=== PATIENT | female | born 1975 | race Caucasian/White ===

== ENCOUNTER 2020-05-18 15:28 | Emergency (ER) | payer BC, OTHER ==
[~2020-05-18] VITALS: Ht 167.6 cm; Wt 63.5 kg
[2020-05-18] MEDS ORDERED: IBUPROFEN 600 MG TABLET ONE (15:41)
[2020-05-18] MEDS ORDERED: IBUPROFEN 600 MG TABLET PO ONE (15:45)
--- NOTE | 2020-05-18 16:00 | NUR ---
Patient discharged to home in stable condition. Written and verbal after care instructions given. Patient verbalizes understanding of instructions. Stressed follow up or return to ER for worsening s/s.
== END 2020-05-18 16:00 | disposition home or self-care (01) ==
LOC: ER 15:28
DX: S60.221A Contusion of right hand, initial encounter (principal); Y04.2XXA Assault by strike against or bumped into by another person, initial encounter; Y93.F9 Activity, other caregiving; Y92.239 Unspecified place in hospital as the place of occurrence of the external cause; Y99.0 Civilian activity done for income or pay
CPT/HCPCS: 73130; A4663

== ENCOUNTER 2022-04-14 07:12 | Outpatient (CLI) | payer BC ==
[2022-04-14 07:39] LABS: HEMATOCRIT 39.5 % (31.2-41.9); MEAN CORPUSCULAR HEMOGLOBIN 29.9 uug (24.7-32.8); MEAN CORPUSCULAR VOLUME 87.6 fL (75.5-95.3); PLATELET COUNT (AUTO) 360 K/uL (179-408)
[2022-04-14 08:39] LABS: BILIRUBIN,TOTAL 0.5 mg/dL (0.2-1.0); CREATININE 0.6 mg/dL (0.6-1.3); POTASSIUM 4.1 mmol/L (3.5-5.1); TOTAL PROTEIN, SERUM 7.2 g/dL (6.4-8.2)
== END 2022-04-14 23:59 | disposition home or self-care (01) ==
LOC: LAB 07:12
PROVIDERS: ATTEND Nurse Practitioner Acute Care
DX: E78.5 Hyperlipidemia, unspecified (principal)
CPT/HCPCS: 36415; 85025

== ENCOUNTER 2022-06-18 13:28 | Emergency (ER) | payer BC ==
[~2022-06-18] VITALS: Ht 167.6 cm; Wt 70.3 kg
--- NOTE | 2022-06-18 13:41 | NUR ---
Dr Crane is now with the patient in the triage area. Medical screening exam in progress
[2022-06-18] MEDS ORDERED: DEXAMETHASONE 0.5 MG/5 ML LIQ UDC PO ONE (14:15)
[2022-06-18] MEDS ORDERED: DEXAMETHASONE 5 MG/5 ML LIQUID UDC ONE (14:16)
[2022-06-18] MEDS ORDERED: D-ME473S63 PO (14:25)
--- NOTE | 2022-06-18 14:30 | NUR ---
Patient discharged to home by Dr Crane in stable condition with brisk steady gait. Written and verbal after care instructions given. Patient verbalized understanding and compliance of instructions. Stressed follow up primary doctor and ENT doctor or return to ER for worsening s/s.
[2022-06-18 14:31] VITALS: BP 144/80
== END 2022-06-18 14:30 | disposition home or self-care (01) ==
LOC: ER 13:28
DX: J06.9 Acute upper respiratory infection, unspecified (principal); Z88.1 Allergy status to other antibiotic agents; Z79.899 Other long term (current) drug therapy
CPT/HCPCS: A4663; J8540